=== PATIENT | female | born 1985 | race Caucasian/White ===

== ENCOUNTER 2016-11-04 15:57 | Emergency (ER) | payer OTHER ==
[2016-11-04 19:36] VITALS: BP 108/65
[2016-11-04] MEDS ORDERED: Ketorolac INJ* 60 MG/2 ML VIAL IM ONE (19:59)
--- NOTE | 2016-11-04 20:09 | UC ---
Throat Pain/Nasal Bharathi HPI - HPI Summary HPI Summary: ONE WEEK OF INCREASING SINUS PRESSURE LAST TWO DAYS SINUS PRESSURE HAS SET OFF MIGRAINE. TYLENOL & IBUPROFEN TAKE EDGE OF BUT SINUS PRESSURE IS WORSE. NO FEVER. DAILY SMOKER - History of Current Complaint Chief Complaint: UCHeadache Stated Complaint: HEADACHE Time Seen by Provider: 11/04/16 19:48 Hx Obtained From: Patient Hx Last Menstrual Period: 4-5 WKS Onset/Duration: Gradual Onset, Lasting Days, Still Present, Worse Since - YESTERDAY Cough: Nonproductive Associated Signs & Symptoms: Positive: Sinus Discomfort, Nasal Discharge - Allergies/Home Medications Allergies/Adverse Reactions: Allergies Allergy/AdvReac Type Severity Reaction Status Date / Time Fish Oil AdvReac Intermediate Diarrhea Verified 11/04/16 19:36 Home Medications: Home Medications Acetaminophen [Extra Strength Acetaminop] 1,000 mg PO DAILY PRN 11/04/16 [ History Confirmed 11/04/16] [id number]-Rakxvxew [Excedrin Migraine] 1 tab PO DAILY PRN 11/04/16 [ History Confirmed 11/04/16] Fenofibrate 54 mg PO DAILY 11/04/16 [History Confirmed 11/04/16] Ibuprofen [Ibuprofen 200 MG] 800 mg PO DAILY PRN 11/04/16 [History Confirmed ] Levothyroxine TAB* [Synthroid TAB*] 150 mcg PO DAILY 11/04/16 [History Confirmed 11/04/16] Loratadine [Loratadine Allergy Relief] 10 mg PO DAILY 11/04/16 [History Confirmed 11/04/16] PMH/Surg Hx/FS Hx/Imm Hx Previously Healthy: Yes Endocrine History Of: Reports: Diabetes - DIET CONTROLLED, Thyroid Disease Respiratory History Of: Reports: Asthma - Surgical History Surgical History: Yes Surgery Procedure, Year, and Place: Tubal and C section 04/19 - Family History Known Family History: Positive: Unknown, Respiratory Disease - BOTH PARENTS TOBACCO ABUSE, Other - no FMH osteoporosis - Social History Occupation: Employed Full-time Lives: With Family Alcohol Use: Rare Substance Use Type: None Smoking Status (MU): Current Every Day Smoker Type: Cigarettes Amount Used/How Often: 1/2 PPD Length of Time of Smoking/Using Tobacco: started ~ age 12 Have You Smoked in the Last Year: Yes Household Exposure Type: Cigarettes Cessation Counseling: Counseled 3+Min - 10 Min - Immunization History Most Recent Influenza Vaccination: Fall 2014 Review of Systems Constitutional: Negative Skin: Negative Eyes: Negative ENT: Ear Ache, Nasal Discharge Respiratory: Negative Cardiovascular: Negative Gastrointestinal: Negative Genitourinary: Negative Motor: Negative Neurovascular: Negative Musculoskeletal: Negative Neurological: Headache Psychological: Negative All Other Systems Reviewed And Are Negative: Yes Physical Exam Triage Information Reviewed: Yes Appearance: Well-Appearing, Well-Nourished, Pain Distress - MILD Vital Signs: Initial Vital Signs Temp 98 F 11/04/16 19:29 Pulse 88 11/04/16 19:29 Resp 16 11/04/16 19:29 BP 108/65 11/04/16 19:29 Pulse Ox 98 11/04/16 19:29 Vital Signs Reviewed: Yes Eye Exam: Normal ENT: Positive: Hearing grossly normal, Pharynx normal, TM bulging, TM dull Dental Exam: Normal Neck exam: Normal Neck: Positive: Supple, Nontender Respiratory Exam: Normal Respiratory: Positive: Chest non-tender, Lungs clear, Normal breath sounds, No respiratory distress, No accessory muscle use Cardiovascular Exam: Normal Cardiovascular: Positive: RRR, No Murmur Abdominal Exam: Normal Abdomen Description: Positive: Nontender, No Organomegaly Musculoskeletal Exam: Normal Musculoskeletal: Positive: Strength Intact, ROM Intact, Other: - NEGATIVE KERNIGS NEGATIVE BRUDZINSKIS Neurological Exam: Normal Neurological: Positive: Alert, Muscle Tone Normal, Other: - CN 2-12 INTACT Psychological Exam: Normal Skin Exam: Normal Throat Pain/Nasal Course/Dx - Differential Dx/Diagnosis Differential Diagnosis/HQI/PQRI: Influenza, Otitis Media, Pharyngitis, Sinusitis , URI Provider Diagnoses: MIGRAINE. SINUSITIS Discharge - Discharge Plan Condition: Stable Disposition: HOME Prescriptions: Amoxicillin/Clavulanate TAB* [Augmentin TAB 875*] 875 mg PO BID #20 tab Fluticasone NASAL SPRAY 50MCG* [Flonase NASAL SPRAY 50MCG*] 2 spray BOTH NARES DAILY #1 btl Patient Education Materials: How to Stop Smoking (ED), Sinusitis (ED), Migraine Headache (ED), Cigarette Smoking and Your Health (GEN) Referrals: Kalie Sheriff MD [Primary Care Provider] -
== END 2016-11-04 20:32 | disposition home or self-care (01) ==
LOC: UCCORT 15:57
DX: G43.909 Migraine, unspecified, not intractable, without status migrainosus (principal); J32.9 Chronic sinusitis, unspecified; E07.9 Disorder of thyroid, unspecified; F17.210 Nicotine dependence, cigarettes, uncomplicated
CPT/HCPCS: 96372; 99212; G0463; J1885

== ENCOUNTER 2017-04-27 18:50 | Emergency (ER) | payer OTHER ==
[2017-04-27 19:02] VITALS: BP 139/70
[2017-04-27] MEDS ORDERED: Amoxicillin PO (*) 500 MG CAP PO ONE (19:34)
--- NOTE | 2017-04-27 19:36 | UC ---
Throat Pain/Nasal Bharathi HPI - HPI Summary HPI Summary: 31 yo female with facial pressure and pain x 5 days no f/c malaise/low energy nasal congestion and post nasal drip - History of Current Complaint Chief Complaint: UCGeneralIllness Stated Complaint: FATIGUE/SINUS/CHILLS Time Seen by Provider: 04/27/17 19:25 Hx Obtained From: Patient Hx Last Menstrual Period: 04/27/17 Onset/Duration: Gradual Onset, Lasting Days Severity: Moderate Pain Intensity: 4 Pain Scale Used: 0-10 Numeric Cough: Nonproductive Associated Signs & Symptoms: Positive: Sinus Discomfort, Nasal Discharge - Allergies/Home Medications Allergies/Adverse Reactions: Allergies Allergy/AdvReac Type Severity Reaction Status Date / Time Fish Oil AdvReac Intermediate Diarrhea Verified 04/27/17 19:02 Home Medications: Home Medications Ibuprofen [Midol] 200 mg PO DAILY 04/27/17 [History Confirmed 04/27/17] PMH/Surg Hx/FS Hx/Imm Hx Previously Healthy: Yes Endocrine History: Hypothyroidism, Dyslipidemia Cardiovascular History: Hypertension Respiratory History: Asthma - Surgical History Surgical History: Yes Surgery Procedure, Year, and Place: Tubal and C section 04/19 - Family History Known Family History: Positive: Hypertension, Respiratory Disease - BOTH PARENTS TOBACCO ABUSE, Other - no FMH osteoporosis - Social History Alcohol Use: Rare Substance Use Type: None Smoking Status (MU): Current Every Day Smoker Type: Cigarettes Amount Used/How Often: 1/2 PPD Length of Time of Smoking/Using Tobacco: started ~ age 12 Have You Smoked in the Last Year: Yes Household Exposure Type: Cigarettes - Immunization History Most Recent Influenza Vaccination: Fall 2014 Review of Systems Constitutional: Negative Skin: Negative Eyes: Negative ENT: Nasal Discharge, Sinus Congestion, Sinus Pain/Tenderness Respiratory: Cough Cardiovascular: Negative Gastrointestinal: Negative Genitourinary: Negative Motor: Negative Neurovascular: Negative Musculoskeletal: Negative Neurological: Negative Psychological: Negative All Other Systems Reviewed And Are Negative: Yes Physical Exam Triage Information Reviewed: Yes Appearance: Well-Appearing, No Pain Distress Vital Signs: Initial Vital Signs Temp 98.6 F 04/27/17 18:59 Pulse 92 04/27/17 18:59 Resp 16 04/27/17 18:59 BP 139/70 04/27/17 18:59 Pulse Ox 100 04/27/17 18:59 Vital Signs Reviewed: Yes Eyes: Positive: Conjunctiva Clear ENT: Positive: Hearing grossly normal, Nasal congestion, Nasal drainage, TMs normal, Tonsillar swelling, Other: - bilat sinus tenderness. Negative: Tonsillar exudate, Trismus, Muffled/hoarse voice Dental: Negative: Gross Decay/Caries @ Neck: Positive: Supple, Nontender, No Lymphadenopathy Respiratory: Positive: Lungs clear, Normal breath sounds, No respiratory distress, No accessory muscle use Cardiovascular: Positive: RRR, No Murmur Abdomen Description: Positive: Nontender, No Organomegaly Musculoskeletal: Positive: ROM Intact, No Edema Neurological: Positive: Alert Psychological Exam: Normal Skin Exam: Normal Throat Pain/Nasal Course/Dx - Differential Dx/Diagnosis Provider Diagnoses: acute sinusitis Discharge - Discharge Plan Condition: Stable Disposition: HOME Prescriptions: Amoxicillin PO (*) [Amoxicillin 875 MG (*)] 875 mg PO BID #20 tab Patient Education Materials: Sinusitis (ED) Forms: *Work Release Referrals: Kalie Sheriff MD [Primary Care Provider] - If Needed Additional Instructions: warm facial compresses saline nasal spray and/or flonase
== END 2017-04-27 19:55 | disposition home or self-care (01) ==
LOC: UCCORT 18:50
DX: J01.90 Acute sinusitis, unspecified (principal); I10 Essential (primary) hypertension; J45.909 Unspecified asthma, uncomplicated; F17.210 Nicotine dependence, cigarettes, uncomplicated
CPT/HCPCS: 99212; A9270-GY; G0463

== ENCOUNTER 2017-05-12 09:27 | Emergency (ER) | payer OTHER ==
[2017-05-12 10:03] VITALS: BP 126/73
--- NOTE | 2017-05-12 10:58 | UC ---
Throat Pain/Nasal Bharathi HPI - HPI Summary HPI Summary: This is a 31 yo female with a 4d h/o ST, ear pain and fevers up to 102 F. She works as a daycare provider and recently finished a course of amoxicillin for a sinus infection. She still has some nasal congestion. She denies n/v/d. No recent rash. She is able to swallow, but solid foods are limited. - History of Current Complaint Chief Complaint: UCRespiratory Stated Complaint: SORE THROAT,FEVER Hx Last Menstrual Period: 04/27/17 Pain Intensity: 6 Pain Scale Used: 0-10 Numeric - Allergies/Home Medications Allergies/Adverse Reactions: Allergies Allergy/AdvReac Type Severity Reaction Status Date / Time Fish Oil AdvReac Intermediate Diarrhea Verified 05/12/17 10:03 PMH/Surg Hx/FS Hx/Imm Hx Previously Healthy: No - hypothyroidism - Surgical History Surgical History: Yes Surgery Procedure, Year, and Place: Tubal and C section 04/19 - Family History Known Family History: Positive: Unknown, Hypertension, Respiratory Disease - BOTH PARENTS TOBACCO ABUSE, Other - no FMH osteoporosis - Social History Alcohol Use: Rare Substance Use Type: None Smoking Status (MU): Current Every Day Smoker Type: Cigarettes Amount Used/How Often: 1/2 PPD Length of Time of Smoking/Using Tobacco: started ~ age 12 Have You Smoked in the Last Year: Yes Household Exposure Type: Cigarettes - Immunization History Most Recent Influenza Vaccination: Fall 2014 Review of Systems Constitutional: Fever, Fatigue Skin: Negative Eyes: Negative ENT: Sore Throat Respiratory: Negative Cardiovascular: Negative Gastrointestinal: Negative Genitourinary: Negative Motor: Negative Neurovascular: Negative Musculoskeletal: Negative Neurological: Negative Psychological: Negative All Other Systems Reviewed And Are Negative: Yes Physical Exam Triage Information Reviewed: Yes Appearance: Ill-Appearing - mildly Vital Signs: Initial Vital Signs Temp 96.9 F 05/12/17 10:00 Pulse 91 05/12/17 10:00 Resp 16 05/12/17 10:00 BP 126/73 05/12/17 10:00 Pulse Ox 99 05/12/17 10:00 Vital Signs Reviewed: Yes ENT: Positive: Pharyngeal erythema, TMs normal, Tonsillar swelling, Tonsillar exudate Neck: Positive: Supple, Tenderness @ - anterior cervical, Enlarged Nodes @ - anterior cervical Respiratory: Positive: Lungs clear, Normal breath sounds. Negative: Crackles, Rhonchi, Stridor, Wheezing Cardiovascular: Positive: RRR, No Murmur Abdomen Description: Positive: Nontender, Soft Skin Exam: Normal Diagnostics - Laboratory Diagnostic Studies Completed/Ordered: rapid strep - positive Throat Pain/Nasal Course/Dx - Course Course Of Treatment: This is 31 yo female who recently completed course of amoxicillin for a sinus infection who now presents with ST and fever with positive rapid strep. Due to recent amoxicillin, will treat with clindamycin. - Differential Dx/Diagnosis Differential Diagnosis/HQI/PQRI: Laryngitis, Pharyngitis, Sinusitis, Tonsillitis Provider Diagnoses: 1. Strep pharyngitis Discharge - Discharge Plan Condition: Stable Disposition: HOME Prescriptions: Clindamycin Cap(NF) [Clindamycin Cap 300 mg Cap(NF)] 300 mg PO TID #21 cap Patient Education Materials: Strep Throat (ED) Forms: *Work Release Referrals: Kalie Sheriff MD [Primary Care Provider] - If Needed Additional Instructions: Activity: As tolerated Instructions: 1. Please take antibiotics as directed 2. Cont nasal spray and antihistamine for congestion 3. Use tylenol and/or ibuprofen for fever/pain
== END 2017-05-12 10:38 | disposition home or self-care (01) ==
LOC: UCCORT 09:27
DX: J02.0 Streptococcal pharyngitis (principal); R09.81 Nasal congestion; E03.9 Hypothyroidism, unspecified; F17.210 Nicotine dependence, cigarettes, uncomplicated
CPT/HCPCS: 87651; 99212; G0463

== ENCOUNTER 2017-12-23 15:49 | Emergency (ER) | payer OTHER ==
[2017-12-23 15:55] VITALS: BP 127/74
--- OUTSIDE RECORDS SUMMARY | 2017-12-23 15:55 | XMS REPORT ---
:1985 External Reference #:[id number] Author Organization [facility] Address [address], [address] [place] [address] Phone [phone] Care Team Providers Name Role Phone Doris Damon M.D. Care Team Information Senior Network Architect Unavailable Doris Damon M.D. Primary Care Physician Unavailable Payers Type Date Identification Numbers Payment Provider Subscriber Commercial Policy Number: [id number] [facility] Susu Mahmood PayID: [id number] [address] [place] [address] Medicaid Policy Number: [id number] Medicaid Susu Mahmood Group Name: 1 1 [address] PayID: [id number] [place] [address] Problems Date Description Provider Status Onset: 05/28/2013 Abnormal cervical Papanicolaou TAYLOR Blount Active smear Onset: 02/18/2013 Hypothyroidism TAYLOR Blount Active Onset: 01/01/2012 Tobacco user Yancy Martinez, [employer] Active Onset: 09/18/2016 Mixed hyperlipidemia Doris Damon M.D. Active Onset: 01/23/2011 Contusion of foot Axel White MD Resolved Resolved: 09/08/2015 Onset: 02/18/2013 Pure hyperglyceridemia Nic Kirkpatrick RPAC Resolved Resolved: 09/08/2015 Onset: 04/28/2013 Disease of liver Nic Kirkpatrick RPAC Resolved Resolved: 09/08/2015 Onset: 07/16/2012 Type 2 diabetes mellitus Resolved Resolved: 11/09/2015 Onset: 09/08/2015 depression Doris Damon M.D. 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 - twice a Fenofibrate 07/26 Active Capsules 134mg 90cap 1 Tab PO Doris Damon Micronized s Q Day M.D. Nicotine 07/03 Active Patches 14mg/24HR 28uni 1 patch F17.210 Doris Damon, 24HR ts transderm M.D. al every daily Atorvastatin 07/03 Active Tablets 20mg 30tab 1 By Doris Damon, Calcium s Mouth M.D. Every Day Levothyroxine 07/03 Active Tablets 175mcg 30tab 1 By E03.9 Doris Damon, Sodium s Mouth M.D. Every Day Blood Glucose 09/18 Active Strips 100un test E11.9 Doris Damon, Test its sugars M.D. fasting Am e11.9 Lancets Ultra 09/18 Active Misc 50uni test E11.9 Doris Damon, Thin ts sugars M.D. three times a day dx.e11.9 Ventolin HFA 09/18 Active Aerosol 108(90Bas 8gm inhale Doris Damon e) 1-2 puffs M.D. mcg/Act by mouth every 4 to 6 hours as needed Metformin HCL 00/00 Active Tablets 500mg 60tab Take One Doris Damon, / s Tablet By M.D. Mouth Twice A Day Metformin HCL 08/05 Hx Tablets 500mg 60tab take one E11.9 Doris Damon s tablet by M.D. - mouth 08/19 twice a day Bupropion HCL 07/03 Hx Tablets ER 150mg 60tab 1 by F17.210 Doris Damon, ER (SR) /2016 12HR s mouth M.D. - twice a Fenofibrate 07/03 Hx Tablets 145mg 90tab 1 by Doris Damon, s mouth M.D. - every day 07/26 Mucinex 05/16 Hx Tablets ER 600mg 60tab one tab J01.90 Sloane /2016 12HR s by mouth JOHNNIE AmaroP - twice a Amoxicillin/Cl 05/16 Hx Suspension 250-62.5m 200ml 10 J02.0 [facility] /2016 Rec g/5ML millilite DIMA Amaro Potassium - rs by 05/26 twice a day x 10 days Fenofibrate 06/12 Hx Tablets 54mg 30tab Take 1 Doris Damon s Tab By Sis - Mouth 07/03 Daily Levothyroxine 06/12 Hx Tablets 150mcg 30tab take 1 E03.9 Doris Damon, s tablet by Sis - mouth 07/03 Naproxen 06/04 Hx Tablets 500mg 30tab 500 mg by M25.521 Doris Damon, s mouth M.D. - every 12 prn pain Baclofen 01/17 Hx Tablets 10mg 45tab 1 tab PO M54.2 Doris Damon s tid as M.D. - needed 09/18 Amoxicillin 01/17 Hx Tablets 500mg 20tab 1 tab by J01.90 Doris Damon, s mouth M.D. - twice a 06/04 day x days Sertraline HCL 12/06 Hx Tablets 25mg 1 by F33.0 Doris Damon, mouth M.D. - every day 06/04 Loratadine 12/06 Hx Tablets 10mg 30tab 1 by J30.9 Doris Damon, s mouth M.D. - every day 11/05 Atorvastatin 09/08 Hx Tablets 20mg 30tab 1 By Doris Damon Calcium s Mouth M.D. - Every Day 07/03 Levothyroxine 06/08 Hx Tablets 175mcg 30tab 1 By Doris Damon Sodium s Mouth M.D. - Every Day 06/12 Terconazole 11/04 Hx Cream 0.4% 1unit 1 Eva, s applicwilma Lemus MD - r every 09/08 night at /2014 bedtime Plus 09/07 Hx Tablets 27-1mg 30tab 1 by Sloane s mouth Bennyune, [employer] - every day 09/08 Flonase 06/15 Hx Suspension 50mcg/Act 1unit 1 spray Genie, s each bryon Amaya MD - daily 09/08 Ventolin HFA 06/03 Hx Aerosol 108mcg/Ac 1unit 1-2 puffs oDris Damon, t s every 4-6 M.D. - hours as 09/18 Vitamin B-6 02/06 Hx Tablets 250mg 30tab 1 po qd 924.20 Axel johnathon White MD - 09/08 Levothyroxine Hx Tablets 150mcg 1 by Mariah Mata / mouth MD Eva - every day 06/08 Lovaza Hx Capsules 1gm 120ca 2 tab po Unknown /0000 ps bid - 09/08 Motrin Hx Tablets 600mg 45tab po prn Unknown /0000 s pain - 09/08 Multivitamins 00 Hx Tablets 1 po qd Unknown /0000 - 09/08 Chantix Hx Tablets 1mg 1tabs continuat Unknown /0000 ion packs - 09/08 Sertraline HCL Hx Tablets 50mg 90tab 1 by F32.8 Doris Damon, / s mouth M.D. - every day 12/06 Benzonatate Hx Capsules 200mg 30cap one Doris Damon, /0000 s tablet by M.D. - mouth 11/09 every hours as needed cough Vitamin D3 Hx Tablets 2000Unit 1 by Doris Damon, Super Strength /0000 mouth M.D. - every day 09/18 Clindamycin 00/ Hx Capsules 300mg Unknown HCL /0000 - 07/03 Immunizations CPT Code Status Date Vaccine Lot # [id number] Given 07/03/2017 Influenza Virus Vaccine Quadrivalent Iiv4 [place] [id number] [id number] Given 09/03/2016 Influenza Virus Vaccine Split Virus Use For [id number] Individual 3Yr Older [id number] Given 09/08/2015 Influenza Vaccine (Fluzone) Age 3 And Older [id number] Given 01/18/2014 Tdap injection 80688 Given 07/16/2013 flu vaccination 27596 Given 10/02/2012 flu vaccination [id number] Given 07/17/2011 flu vaccination Vital Signs Date Vital Result Comment 11/26/2017 BP Systolic Sitting Right Arm 120 mmHg BP Diastolic Sitting Right Arm 88 mmHg Body Temperature 97.4 F Heart Rate 90 /min Respiratory Rate 16 /min Height 63 inches 5'3" Weight 188.00 lb BMI (Body Mass Index) 33.3 kg/m2 BSA (Body Surface Area) 1.88 m2 [place] body weight in kilograms 52 O2 % BldC Oximetry 95 % 11/05/2017 BP Systolic Sitting Left Arm 110 mmHg BP Diastolic Sitting Left Arm 70 mmHg Height 63 inches 5'3" Weight 186.38 lb BMI (Body Mass Index) 33.0 kg/m2 BSA (Body Surface Area) 1.88 m2 [place] body weight in kilograms 52 08/05/2017 BP Systolic Sitting Right Arm 102 mmHg BP Diastolic Sitting Right Arm 78 mmHg Heart Rate 64 /min Height 63 inches 5'3" Weight 192.12 lb BMI (Body Mass Index) 34.0 kg/m2 BSA (Body Surface Area) 1.90 m2 [place] body weight in kilograms 52 07/03/2017 BP Systolic Sitting Right Arm 120 mmHg BP Diastolic Sitting Right Arm 76 mmHg Height 63 inches 5'3" Weight 194.00 lb BMI (Body Mass Index) 34.4 kg/m2 BSA (Body Surface Area) 1.91 m2 [place] body weight in kilograms 52 Last Menstrual Period [id number] 05/16/2017 BP Systolic 116 mmHg BP Diastolic 84 mmHg Body Temperature 98.3 F Heart Rate 92 /min Height 63 inches 5'3" Weight 191.00 lb BMI (Body Mass Index) 33.8 kg/m2 BSA (Body Surface Area) 1.90 m2 [place] body weight in kilograms 52 O2 % BldC Oximetry 97 % 09/18/2016 BP Systolic 132 mmHg BP Diastolic 80 mmHg Height 63 inches 5'3" Weight 197.12 lb BMI (Body Mass Index) 34.9 kg/m2 BSA (Body Surface Area) 1.92 m2 [place] body weight in kilograms 52 06/11/2016 BP Systolic Sitting Left Arm 138 mmHg BP Diastolic Sitting Left Arm 86 mmHg Height 63 inches 5'3" Weight 198.12 lb BMI (Body Mass Index) 35.1 kg/m2 BSA (Body Surface Area) 1.93 m2 [place] body weight in kilograms 52 06/04/2016 BP Systolic Sitting Left Arm 114 mmHg BP Diastolic Sitting Left Arm 78 mmHg Body Temperature 99.1 F Heart Rate 84 /min Respiratory Rate 18 /min Weight 199.12 lb Last Menstrual Period [id number] 01/18/2016 BP Systolic Sitting Left Arm 118 mmHg BP Diastolic Sitting Left Arm 74 mmHg Body Temperature 98.9 F Heart Rate 60 /min Respiratory Rate 19 /min Height 63 inches 5'3" Weight 189.00 lb BMI (Body Mass Index) 33.5 kg/m2 BSA (Body Surface Area) 1.89 m2 12/07/2015 BP Systolic 110 mmHg BP Diastolic 70 mmHg Heart Rate 88 /min Respiratory Rate 19 /min Weight 182.00 lb 09/08/2015 BP Systolic 112 mmHg BP Diastolic 72 mmHg Height 63 inches 5'3" Weight 174.00 lb BMI (Body Mass Index) 30.8 kg/m2 BSA (Body Surface Area) 1.82 m2 Last Menstrual Period [id number] 10/17/2014 BP Systolic 118 mmHg BP Diastolic 74 mmHg Height 63 inches 5'3" Weight 187.00 lb 10/17/2014 Body Temperature 98.9 F 09/07/2014 BP Systolic 120 mmHg BP Diastolic 80 mmHg Heart Rate 88 /min Height 63 inches 5'3" Weight 182.00 lb 09/06/2014 BP Systolic 108 mmHg BP Diastolic 76 mmHg Weight 183.00 lb 06/03/2014 BP Systolic 118 mmHg BP Diastolic 72 mmHg Body Temperature 99.0 F Weight 180.00 lb 01/18/2014 BP Systolic 114 mmHg BP Diastolic 72 mmHg Body Temperature 98.8 F Height 63 inches 5'3" Weight 191.00 lb 07/16/2013 BP Systolic 100 mmHg BP Diastolic 78 mmHg Height 63 inches 5'3" Weight 181.00 lb 05/28/2013 BP Systolic 118 mmHg BP Diastolic 72 mmHg Body Temperature 98.6 F Height 63 inches 5'3" Weight 179.00 lb 05/10/2013 BP Systolic 118 mmHg BP Diastolic 80 mmHg Body Temperature 98.4 F Height 63 inches 5'3" Weight 181.00 lb 03/15/2013 Height 63 inches 5'3" Weight 178.00 lb 03/15/2013 BP Systolic 120 mmHg BP Diastolic 78 mmHg 02/18/2013 BP Systolic 112 mmHg BP Diastolic 70 mmHg Height 63 inches 5'3" Weight 176.00 lb 10/16/2012 BP Systolic 118 mmHg BP Diastolic 66 mmHg Height 63 inches 5'3" Weight 180.00 lb 10/02/2012 BP Systolic 116 mmHg BP Diastolic 74 mmHg Body Temperature 99.0 F Height 63 inches 5'3" Weight 181.00 lb 07/30/2012 BP Systolic 108 mmHg BP Diastolic 78 mmHg Height 63 inches 5'3" Weight 182.00 lb 07/16/2012 BP Systolic 100 mmHg BP Diastolic 70 mmHg Body Temperature 98.9 F Height 63 inches 5'3" Weight 184.00 lb 02/06/2012 BP Systolic 118 mmHg BP Diastolic 72 mmHg Heart Rate 80 /min Height 63 inches 5'3" Weight 191.00 lb 01/01/2012 BP Systolic 124 mmHg BP Diastolic 76 mmHg Body Temperature 98.8 F Height 63 inches 5'3" Weight 188.00 lb 09/02/2011 BP Systolic 108 mmHg BP Diastolic 70 mmHg Body Temperature 98.8 F Height 63 inches 5'3" Weight 188.00 lb 07/17/2011 BP Systolic 118 mmHg BP Diastolic 72 mmHg Heart Rate 80 /min Respiratory Rate 18 /min Height 63 inches 5'3" Weight 186.00 lb 01/23/2011 Height 64 inches 5'4" Weight 185.00 lb BMI (Body Mass Index) 31.8 kg/m2 Results Test Date Test Result H/L Range Note Glycohemoglobin A1c 11/11/2017 Glycohemoglobin (A1c) 6.6 % High 4.2-6.3 1 , 2 eAG 143 mg/dL 1 LDL Cholesterol Profile 11/11/2017 Cholesterol 119 mg/dL <200 1, 3 Triglycerides 256 mg/dL High <150 1, 4 HDL Cholesterol 27 mg/dL Low >40 1, 5 LDL-Cholesterol 41 mg/dL < 100 1, 6 Reflex add FT3? Y 1 Reflex add FT4? Y 1 Comprehensive Metabolic Panel 11/11/2017 Glucose 112 mg/dL High 74-106 1 BUN 14 mg/dL 7-18 1 Creatinine 0.7 mg/dL 0.6-1.3 1 Glom Filtration Rate, Estimate >60 mL/min >60 1 If >60 mL/min >60 1, 7 BUN/Creat 20.0 ratio 1 Sodium 139 mmol/L 136-145 1 Potassium 4.2 mmol/L 3.5-5.1 1 Chloride 107 mmol/L 98-107 1 Carbon Dioxide 27 mmol/L 21-32 1 Anion Gap 5 mEq/L Low 8-16 1 Calcium 8.7 mg/dL 8.5-10.1 1 Total Protein 7.1 g/dL 6.4-8.2 1 Albumin 4.0 g/dL 3.4-5.0 1 Globulin 3.1 g/dL 1.9-4.3 1 Alb/Glob 1.3 ratio 1 Bilirubin,Total 0.3 mg/dL 0.2-1.0 1 Sgot/Ast 33 U/L 15-37 1 SGPT/Alt 71 U/L 12-78 1 Alkaline Phosphatase 62 U/L 45-117 1 Reflex add FT3? Y 1 Reflex add FT4? Y 1 TSH Reflex FT4 And/Or FT3 11/11/2017 Thyroid Stim Hormone 0.35 uIU/mL 0.30-4.20 1 Reflex add FT3? Y 1 Reflex add FT4? Y 1 TSH Reflex FT4 And/Or FT3 09/15/2017 Thyroid Stim Hormone 0.74 uIU/mL 0.30-4.20 8 Reflex add FT3? Y 8 Reflex add FT4? Y 8 Glycohemoglobin A1c 07/03/2017 Glycohemoglobin (A1c) 6.5 % High 4.2-6.3 9 , 10 eAG 140 mg/dL 9 Microalb/Creat Ratio,Random 07/03/2017 Microalbumin,Urine 87.4 mg/L < 20.0 9 Microalbumin/Creatinine Ratio 38.5 ug/mgCrt < 30.0 9 Urine Creatinine Conc 227 mg/dL 9 TSH Reflex FT4 And/Or 07/03/2017 Thyroid Stim Hormone 7.92 uIU/mL High 0.30-4.20 9 FT3 Reflex add FT3? Y 9 Reflex add FT4? Y 9 LDL Cholesterol Profile 07/03/2017 Cholesterol 275 mg/dL High <200 9, 11 Triglycerides 1344 mg/dL High <150 9, 12 HDL Cholesterol 26 mg/dL Low >40 9, 13 LDL-Cholesterol TNP mg/dL < 100 9, 14 Reflex add FT3? Y 9 Reflex add FT4? Y 9 Free T3 07/03/2017 Free T3 2.53 pg/mL 2.18-3.98 9 Reflex add FT3? Y 9 Reflex add FT4? Y 9 Free T4 07/03/2017 Free T4 1.22 ng/dL 0.76-1.46 9 Reflex add FT3? Y 9 Reflex add FT4? Y 9 LDL Cholesterol Profile 09/18/2016 Cholesterol 161 mg/dL <200 15, 16 Triglycerides 439 mg/dL High <150 15, 17 HDL Cholesterol 25 mg/dL Low >40 15, 18 LDL-Cholesterol TNP mg/dL < 100 15, 19 Laboratory test 09/18/2016 Glycohemoglobin A1c <pending> 15 finding Free T4 06/11/2016 Free T4 1.56 ng/dL High 0.76-1.46 20 @[facility] Pat Id: [id number] 20 @[facility] Req #: [id number] 20 Is Patient Fasting? Unknown 20 Thyroid Stim Hormone 06/11/2016 Thyroid Stim Hormone 2.50 uIU/mL 0.30- 4.20 20 @[facility] Pat Id: [id number] 20 @[facility] Req #: [id number] 20 Is Patient Fasting? Unknown 20 LDL Cholesterol Profile 06/11/2016 Cholesterol 167 mg/dL <200 20, 21 Triglycerides 735 mg/dL High <150 20, 22 HDL Cholesterol 26 mg/dL Low >40 20, 23 LDL-Cholesterol TNP mg/dL < 100 20, 24 @[facility] Pat Id: [id number] 20 @[facility] Req #: [id number] 20 Is Patient Fasting? Unknown 20 Laboratory test 09/08/2015 TSH Reflex FT4 and/or 0.49 uIU/mL 0.36-3.74 25, 26 finding FT3 LDL Cholesterol 09/08/2015 Cholesterol 195 mg/dL <200 27 Profile Triglycerides 319 mg/dL High <150 28 HDL Cholesterol 28 mg/dL Low >40 29 LDL-Cholesterol 103 mg/dL < 100 30 Glycohemoglobin A1c 09/08/2015 Glycohemoglobin (A1c) 5.9 % 4.2-6.3 31 eAG 123 mg/dL Microalb/Creat Ratio,Random 09/08/2015 Microalbumin,Urine < 6.0 mg/L & lt; 20.0 Microalbumin/Creatinine Ratio 5.7 ug/mgCrt < 30.0 Urine Creatinine Conc 105 mg/dL Laboratory test 09/08/2015 Hepatitis B Surface Nonreactive 32, 33 finding Antigen Nonreactive Hepatitis B Surface 09/08/2015 HBSAb Interpretation Nonreactive Antibody Nonreactive Hepatitis B Surface Antibody < 3.1 mIU/mL <3.1 34 Type And Screen 06/16/2015 Patient Blood Type A NEG Antibody Screen POSITIVE High Negative Laboratory test finding 06/16/2015 Antibody Identification RHOGAM D 35 Urine Screen 06/16/2015 Urine Color YELLOW Yellow Urine Clarity SL CLOUDY Clear Urine Glucose - Dipstick NEGATIVE mg/dL Negative Urine Bilirubin - Dipstick NEGATIVE Negative Urine Ketone NEGATIVE mg/dL Negative Urine Specific [place] 1.020 1.010-1.030 Urine Blood NEGATIVE Negative Urine PH 6.0 Low 6.5-7.5 Urine Protein - Dipstick TRACE mg/dL Negative Urine Urobilinogen - Dipstick 0.2 E.U./dL 0.2-1.0 Urine Nitrite - Dipstick NEGATIVE Negative Urine Leuk Esterase NEGATIVE Negative Laboratory test finding 06/09/2015 Free T4 1.45 ng/dL 0.76-1.46 CBS W/Automated Diff 06/09/2015 White Blood Count 12.6 K/uL High 3.1-10.7 Red Blood Count 4.97 M/uL 3.90-5.40 Hemoglobin 14.4 gm/dL 11.6-15.8 Hematocrit 43.4 % 36.0-46.1 Mean Cell Volume 87.3 fl 80.9-99.0 Mean Corpuscular HGB 29.0 pg 25.9-32.7 Mean Corpuscular HGB Conc 33.2 g/dL 30.8-34.3 Platelet Count 262 K/uL 155-360 Red Cell Distri Width SD 43.5 fl 3-47 Red Cell Distri Width %CV 13.9 % 11.7-14.4 Mean Platelet Volume 10.6 fL 8.9-12.4 Neut% 64.3 % 40.4-72.8 Lymph % 26.1 % 17.0-46.1 [place] % 7.3 % 4.3-13.2 Eo% 2.1 % 0.0-6.6 Bas% 0.2 % 0.0-1.1 Neut# 8.08 K/uL High 1.0-7.0 Lymph # 3.28 K/uL 1.8-7.0 [place] # 0.92 K/uL High 0.3-0.9 Eos # 0.27 K/uL 0.0-0.5 Baso # 0.03 K/uL 0.0-0.1 Basic Metabolic Panel 06/09/2015 Glucose 106 mg/dL 74-106 BUN 10 mg/dL 7-18 Creatinine 0.6 mg/dL 0.6-1.3 Glom Filtration Rate, Estimate >60 mL/min >60 If >60 mL/min >60 36 BUN/Creat 16.6 ratio Sodium 138 mmol/L 136-145 Potassium 4.3 mmol/L 3.5-5.1 Chloride 107 mmol/L 98-107 Carbon Dioxide 24 mmol/L 21-32 Anion Gap 7 mEq/L Low 8-16 Calcium 8.6 mg/dL 8.5-10.1 Laboratory test finding 06/09/2015 TSH Reflex FT4 and/or 0.11 uIU/mL Low 0.36-3.74 37 FT3 Glycohemoglobin A1c 06/09/2015 Glycohemoglobin (A1c) 6.2 % 4.2-6.3 38 eAG 131 mg/dL LDL Cholesterol Profile 06/09/2015 Cholesterol 200 mg/dL < 200 39 Triglycerides 278 mg/dL < 150 40 HDL Cholesterol 30 mg/dL > 40 41 LDL-Cholesterol 114 mg/dL < 100 42 Liver Function Tests 06/09/2015 Total Protein 7.1 g/dL 6.4-8.2 Albumin 3.4 g/dL 3.4-5.0 Globulin 3.7 g/dL 1.9-4.3 Alb/Glob 0.9 ratio Bilirubin,Total 0.3 mg/dL 0.2-1.0 Bilirubin,Direct < 0.1 mg/dL 0.0-0.2 Bilirubin,Indirect 0.2 mg/dL 0.0-0.9 Sgot/Ast 12 U/L Low 15-37 43 SGPT/Alt 25 U/L 12-78 Alkaline Phosphatase 83 U/L 45-117 CBC 04/23/2015 White Blood Count 19.3 K/uL High 3.1-10.7 Red Blood Count 3.78 M/uL Low 3.90-5.40 Hemoglobin 11.7 gm/dL 11.6-15.8 Hematocrit 34.6 % Low 36.0-46.1 Mean Cell Volume 91.5 fl 80.9-99.0 Mean Corpuscular HGB 31.0 pg 25.9-32.7 Mean Corpuscular HGB Conc 33.8 g/dL 30.8-34.3 Platelet Count 206 K/uL 155-360 Red Cell Distri Width %CV 14.0 % 11.7-14.4 Mean Platelet Volume 9.9 fL 8.9-12.4 CBC 04/22/2015 White Blood Count 15.8 K/uL High 3.1-10.7 Red Blood Count 3.78 M/uL Low 3.90-5.40 Hemoglobin 11.4 gm/dL Low 11.6-15.8 Hematocrit 33.8 % Low 36.0-46.1 Mean Cell Volume 89.4 fl 80.9-99.0 Mean Corpuscular HGB 30.2 pg 25.9-32.7 Mean Corpuscular HGB Conc 33.7 g/dL 30.8-34.3 Platelet Count 174 K/uL 155-360 Red Cell Distri Width %CV 13.8 % 11.7-14.4 Mean Platelet Volume 10.1 fL 8.9-12.4 Laboratory test finding 04/21/2015 Screen NEGATIVE 44 Laboratory test finding 04/21/2015 Appendix Inflammation See Note 45 CBC 04/20/2015 White Blood Count 14.3 K/uL High 3.1-10.7 Red Blood Count 4.21 M/uL 3.90-5.40 Hemoglobin 12.7 gm/dL 11.6-15.8 Hematocrit 37.1 % 36.0-46.1 Mean Cell Volume 88.1 fl 80.9-99.0 Mean Corpuscular HGB 30.2 pg 25.9-32.7 Mean Corpuscular HGB Conc 34.2 g/dL 30.8-34.3 Platelet Count 212 K/uL 155-360 Red Cell Distri Width %CV 13.9 % 11.7-14.4 Mean Platelet Volume 10.3 fL 8.9-12.4 Laboratory test finding 04/20/2015 Rapid Plasma Reagin NONREACTIVE NONREACTIVE 46 Type And Screen 04/20/2015 Patient Blood Type A NEG Antibody Screen Negative Negative Laboratory test finding 09/07/2014 Abo/RH Type A Neg Antibody Detection See Note 47 Antibody Screen Negative Negative HCG, Quant 23946.0 mIU/mL 48 Hepatitis B Surface Antigen Nonreactive Nonreactive 49 Lead,Blood (Adult) 2 g/dL 0-19 50 Rapid Plasma Reagin Nonreactive Nonreactive 51 Varicella-Zoster Virus IgG Ab 543 Immune>165ind 52 Basic Metabolic Panel 09/07/2014 Anion Gap 12 mEq/L 8-16 BUN 9 mg/dL 7-18 BUN/Creat 12.8 ratio Calcium 9.1 mg/dL 8.5-10.1 Carbon Dioxide 25 mmol/L 21-32 Chloride 103 mmol/L 98-107 Creatinine 0.7 mg/dL 0.6-1.3 Glom Filtration Rate, Estimate >60 mL/min >60 Glucose 103 mg/dL 74-106 If >60 mL/min >60 53 Potassium 3.5 mmol/L 3.5-5.1 Sodium 136 mmol/L 136-145 CBC 09/07/2014 Hematocrit 41.3 % 36.0-46.1 Hemoglobin 14.1 gm/dL 11.6-15.8 Mean Cell Volume 88.2 fl 80.9-99.0 Mean Corpuscular HGB 30.1 pg 25.9-32.7 Mean Corpuscular HGB Conc 34.1 g/dL 30.8-34.3 Mean Platelet Volume 10.1 fL 8.9-12.4 Platelet Count 297 K/uL 155-360 Red Blood Count 4.68 M/uL 3.90-5.40 Red Cell Distri Width %CV 13.6 % 11.7-14.4 White Blood Count 12.6 K/uL High 3.1-10.7 Glycohemoglobin A1c 09/07/2014 Glycohemoglobin (A1c) 5.6 % 4.2-6.3 54 eAG 114 mg/dL Rubella IgG Antibody 09/07/2014 Rubella IgG Antibody Reactive Reactive Rubella IgG Iu/ml 23.4 IU/mL >=10.0 55 Throat-Beta Strept 10/31/2013 Throat Beta Strep Culture (See Note) 56 Laboratory test finding 07/16/2013 Throat Beta Strep Culture (See Note) 57 Urine Culture And 05/28/2013 Urine Culture (See Note) 58 Sensitivities Laboratory test finding 05/28/2013 Pap plus HPV HPV HR+ LR+ 59 GC / Chlamydia 05/28/2013 Chlamydia Negative GC Negative 60 Urine Culture And 03/15/2013 Urine Culture (See Note) 61 Sensitivities Culture Urine 02/18/2013 Urine Culture (See Note) 62 Laboratory test finding 02/06/2012 Cytology Pap See Note 63 Laboratory test finding 02/06/2012 Vad Final Nonreactive Nonreactive 64 GC / Chlamydia 02/06/2012 Chlamydia Negative GC Negative 65 Laboratory test 01/01/2012 Throat-Beta Strep <See 66 finding Culture Note> 1 E11.9 E78.2 E03.9 2 Elevated levels of HbA1c suggest the need for more aggressive treatment of glycemia. The [place] [employer] recommends that a primary goal of therapy should be a HbA1c of <7% and that physicians should re-evaluate the treatment regimen in patients with HbA1c values consistently >8%. 3 Reference Guidelines*: Desirable: ........... < 200 mg/dL Borderline High: ..... 200-239 mg/dL High: ................ >=240 mg/dL * The National Cholesterol Education Program (NCEP) 4 Reference Guidelines*: Normal: ............. < 150 mg/dL Borderline High: .... 150-199 mg/dL High: ............... 200-499 mg/dL Very High: .......... > 500 mg/dL * Source: National Cholesterol Education Program (NCEP) 5 Reference Guidelines*: Low HDL: ..... < 40 mg/dL Normal: ..... 40-60 mg/dL Desirable: ... > 60 mg/dL *The National Cholesterol Education Program(NCEP) 6 Reference Guidelines*: Optimal:........... <100 mg/dL Near Optimal....... 100-129 mg/dL Borderline High.... 130-159 mg/dL High............... 160-189 mg/dL Very High.......... >=190 mg/dL * Source: National Cholesterol Education Program (NCEP) 7 Note: Persistent reduction for 3 months or more in an eGFR <60 mL/min/1.73 m2 defines CKD. Patients with eGFR values >/=60 mL/min/1.73 m2 may also have CKD if evidence of persistent proteinuria is present. The original MDRD equation for estimated GFR is not valid for patients less than 18 years of age. Additional information may be found at www.kdoqi.org. 8 E03.9 9 E11.9 E03.9 E78.2 10 Elevated levels of HbA1c suggest the need for more aggressive treatment of glycemia. The [place] [employer] recommends that a primary goal of therapy should be a HbA1c of <7% and that physicians should re-evaluate the treatment regimen in patients with HbA1c values consistently >8%. 11 Reference Guidelines*: Desirable: ........... < 200 mg/dL Borderline High: ..... 200-239 mg/dL High: ................ >=240 mg/dL * The National Cholesterol Education Program (NCEP) 12 Reference Guidelines*: Normal: ............. < 150 mg/dL Borderline High: .... 150-199 mg/dL High: ............... 200-499 mg/dL Very High: .......... > 500 mg/dL * Source: National Cholesterol Education Program (NCEP) 13 Reference Guidelines*: Low HDL: ..... < 40 mg/dL Normal: ..... 40-60 mg/dL Desirable: ... > 60 mg/dL *The National Cholesterol Education Program(NCEP) 14 (LDL CANNOT BE CALCULATED FOR TRIGS >400 mg/dL) 15 E78.2 E11.9 16 Reference Guidelines*: Desirable: ........... < 200 mg/dL Borderline High: ..... 200-239 mg/dL High: ................ >=240 mg/dL * The National Cholesterol Education Program (NCEP) 17 Reference Guidelines*: Normal: ............. < 150 mg/dL Borderline High: .... 150-199 mg/dL High: ............... 200-499 mg/dL Very High: .......... > 500 mg/dL * Source: National Cholesterol Education Program (NCEP) 18 Result confirmed by repeat analysis. Reference Guidelines*: Low HDL: ..... < 40 mg/dL Normal: ..... 40-60 mg/dL Desirable: ... > 60 mg/dL *The National Cholesterol Education Program(NCEP) 19 (LDL CANNOT BE CALCULATED FOR TRIGS >400 mg/dL) 20 E78.5 E03.9 21 Reference Guidelines*: Desirable: ........... < 200 mg/dL Borderline High: ..... 200-239 mg/dL High: ................ >=240 mg/dL * The National Cholesterol Education Program (NCEP) 22 Reference Guidelines*: Normal: ............. < 150 mg/dL Borderline High: .... 150-199 mg/dL High: ............... 200-499 mg/dL Very High: .......... > 500 mg/dL * Source: National Cholesterol Education Program (NCEP) 23 Reference Guidelines*: Low HDL: ..... < 40 mg/dL Normal: ..... 40-60 mg/dL Desirable: ... > 60 mg/dL *The National Cholesterol Education Program(NCEP) 24 (LDL CANNOT BE CALCULATED FOR TRIGS >400 mg/dL) 25 QUERY: Reflex add FT3? Y QUERY: Reflex add FT4? Y 26 09/08/15 (FriSep 08) 03:09 PM DORISBENJAMIN DOWLINGN continue levothyroxine 175mcg 27 Reference Guidelines*: Desirable: ........... < 200 mg/dL Borderline High: ..... 200-239 mg/dL High: ................ >=240 mg/dL * The National Cholesterol Education Program (NCEP) 28 Reference Guidelines*: Normal: ............. < 150 mg/dL Borderline High: .... 150-199 mg/dL High: ............... 200-499 mg/dL Very High: .......... > 500 mg/dL * Source: National Cholesterol Education Program (NCEP) 29 Reference Guidelines*: Low HDL: ..... < 40 mg/dL Normal: ..... 40-60 mg/dL Desirable: ... > 60 mg/dL *The National Cholesterol Education Program(NCEP) 30 Reference Guidelines*: Optimal:........... <100 mg/dL Near Optimal....... 100-129 mg/dL Borderline High.... 130-159 mg/dL High............... 160-189 mg/dL Very High.......... >=190 mg/dL * Source: National Cholesterol Education Program (NCEP) 31 Elevated levels of HbA1c suggest the need for more aggressive treatment of glycemia. The [place] [employer] recommends that a primary goal of therapy should be a HbA1c of <7% and that physicians should re-evaluate the treatment regimen in patients with HbA1c values consistently >8%. 32 HBsAg not detected; does not exclude the possibility of exposure to or early acute infections with HBV. 33 09/08/15 (FriSep 08) 03:09 PM DORIS DAMON will need Hep B shots series 34 Values >10 mIU/ML considered IMMUNE 35 Blood Type A NEG 36 Note: Persistent reduction for 3 months or more in an eGFR <60 mL/min/1.73 m2 defines CKD. Patients with eGFR values >/=60 mL/min/1.73 m2 may also have CKD if evidence of persistent proteinuria is present. The original MDRD equation for estimated GFR is not valid for patients less than 18 years of age. Additional information may be found at www.kdoqi.org. 37 A low TSH should not be the sole basis for diagnosing primary hyperthyroidism, or primary hypopituitary function. Additional tests are suggested for confirmation. 38 Elevated levels of HbA1c suggest the need for more aggressive treatment of glycemia. The [place] [employer] recommends that a primary goal of therapy should be a HbA1c of <7% and that physicians should re-evaluate the treatment regimen in patients with HbA1c values consistently >8%. 39 Reference Guidelines*: Desirable: ........... < 200 mg/dL Borderline High: ..... 200-239 mg/dL High: ................ >=240 mg/dL * The National Cholesterol Education Program (NCEP) 40 Reference Guidelines*: Normal: ............. < 150 mg/dL Borderline High: .... 150-199 mg/dL High: ............... 200-499 mg/dL Very High: .......... > 500 mg/dL * Source: National Cholesterol Education Program (NCEP) 41 Reference Guidelines*: Low HDL: ..... < 40 mg/dL Normal: ..... 40-60 mg/dL Desirable: ... > 60 mg/dL *The National Cholesterol Education Program(NCEP) 42 Reference Guidelines*: Optimal:........... <100 mg/dL Near Optimal....... 100-129 mg/dL Borderline High.... 130-159 mg/dL High............... 160-189 mg/dL Very High.......... >=190 mg/dL * Source: National Cholesterol Education Program (NCEP) 43 Values below the stated reference ranges of AST and ALT can be seen in normal populations. Clinical correlation is suggested. 44 Blood Type A NEG 45 OPERATION/PROCEDURE , bilateral tubal occlusion, appendectomy DIAGNOSIS: "INCIDENTAL APPENDECTOMY": FIBROUS OBLITERATION OF TIP. /[facility] 0956 GROSS The specimen is received in formalin in a container labeled, "APPENDIX". The specimen consists of a 5.0 x 1.0 x 1.0 cm. pink-colbert, grossly identifiable vermiform appendix with attached yellow mesoappendix. The serosa is pink-colbert with no areas of hemorrhage, necrosis or inflammation identified. The entire appendix is serially sectioned and submitted entirely in two blocks. DEMARIO/cl PRE OPERATIVE DIAGNOSIS Fecalith appendix, full term with bilateral Filshie clips REVIEW CODE CODE: I Signed Electronically signed MARGAUX SUTTON MD 1054 46 PENDING; TEST PERFORMED ON MONDAYS AND THURSDAYS 47 No reportable results 48 Approximate Gestational Age and Total BHCG Range: 0.2 - 1 Week........................5-50 mIU/mL 1 - 2 Weeks.....................50- 500 mIU/mL 2 - 3 Weeks..................100-5,000 mIU/mL 3 - 4 Weeks.................500-10,000 mIU/mL 4 - 5 Weeks...............1,000-50, 000 mIU/mL 5 - 6 Weeks.............10,000-100,000 mIU/mL 6 - 8 Weeks.............15,000-200,000 mIU/mL 2 - 3 Months............10,000-100, 000 mIU/mL 49 HBsAg not detected; does not exclude the possibility of exposure to or early acute infections with HBV. 50 Environmental Exposure: WHO Recommendation <20 Occupational Exposure: OSHA Lead Std 40 BILLY 30 Detection Limit=1 51 PENDING; TEST PERFORMED ON MONDAYS AND THURSDAYS 52 Negative <135 Equivocal 135 - 165 Positive >165 A positive result generally indicates exposure to the pathogen or administration of specific immunoglobulins, but it is not indication of active infection or stage of disease. Performed at: RN - [facility] [address] [id number] Sewing Inspector: Aisha Millan MD, Phone: [phone] 53 Note: Persistent reduction for 3 months or more in an eGFR <60 mL/min/ 1.73 m2 defines CKD. Patients with eGFR values >/=60 mL/min/1.73 m2 may also have CKD if evidence of persistent proteinuria is present. The original MDRD equation for estimated GFR is not valid for patients less than 18 years of age. Additional information may be found at www.kdoqi.org. 54 Elevated levels of HbA1c suggest the need for more aggressive treatment of glycemia. The [place] [employer] recommends that a primary goal of therapy should be a HbA1c of <7% and that physicians should re-evaluate the treatment regimen in patients with HbA1c values consistently >8%. 55 Values >=10.0 IU/mL are positive for IgG antibodies to rubella virus and are considered IMMUNE. 56 RUN DATE: 11/01/13 [facility] LAB LIVE PAGE 1 RUN TIME: [address] [place] [address] Specimen Inquiry ----- Name: SUSU MAHMOOD : [address]: Lydia Benitez MD Acct: [id number] Unit: [id number] AGE: 28 Location: [facility] Re10/31/13 SEX: F Status: DEP ER ----- SPEC: [id number] HERMELINDA: 10/31/13-[address] [facility] [address]: Lydia Benitez MD REQ: [id number] RECD: 10/31/13-2 STATUS: COMP [facility] DR: Monique Prescott MD [facility] _ SOURCE: THROAT SPDESC: ORDERED: Throat Beta Str COMMENTS: Verbal to [id number] by [id number] at 0829 on 11/01/13. Results read back accurately. ----- Procedure Result Verified Site ----- Throat Beta Strep Culture Final 11/01/13-828 ML Organism 1 STREP GRP A BY BACITRACIN DISC ----- END OF REPORT * ML=Testing performed at Main Lab DEPARTMENT OF PATHOLOGY, [facility] [employer] [place] [address] Eugenio Turcios M.D. Director [facility] Permit # [id number] RUN DATE: 07/18/13 [facility] LAB LIVE PAGE 1 RUN TIME: 931 [facility] [employer] [place], [place] [address] Specimen Inquiry ----- Name: SUSU MAHMOOD : [address]: Dianne Vo NP Acct: [id number] Unit: [id number] AGE: 27 Location: [facility] Re07/16/13 SEX: F Status: REG REF ----- SPEC: [id number] HERMELINDA: 07/16/13-[address]: Dianne Vo NP REQ: [id number] RECD: 07/16/13 STATUS: COMP _ SOURCE: THROAT SPDESC: ORDERED: Throat Beta Str QUERIES: Medent Number [id number] ----- Procedure Result Verified Site ----- Throat Beta Strep Culture Final 07/18/13-930 ML Negative For Group A Beta Streptococcus ----- END OF REPORT * ML=Testing performed at Main Lab DEPARTMENT OF PATHOLOGY, [address] [place] [address] Eugenio Turcios M.D. Director [facility] Permit # [id number] 58 RUN DATE: 05/30/13 [facility] LAB LIVE PAGE 1 RUN TIME: [address] [place] [address] Specimen Inquiry ----- Name: SUSU MAHMOOD Florin : [address]: Nic GALLEGOS Acct: [id number] Unit: [id number] AGE: 27 Location: [facility] Re05/28/13 SEX: F Status: REG REF ----- SPEC: [id number] HERMELINDA: 05/28/13-[address]: Nic GALLEGOS REQ: [id number] RECD: 05/28/13 STATUS: COMP _ SOURCE: URINE SPDESC: ORDERED: Urine Culture QUERIES: Medent Number [id number] ----- Procedure Result Verified Site ----- Urine Culture Final 05/30/13-1105 ML Organism 1 NORMAL DORITA [place] Count 75-100,000 (Many) CFU/ML ----- END OF REPORT * ML=Testing performed at Main Lab DEPARTMENT OF PATHOLOGY, [address] [place] [address] Eugenio Turcios M.D. Director [facility] Permit # [id number] 59 Cytology Laboratory [address] [place] [address], [facility] [address] [place] [address] CYTOLOGY REPORT Name: Susu Mahmood Accession # : [id number] : 1985 (Age: 27) Sex: F Location: [facility] Med. Rec. # [id number] Date Collected: 05/28/2013 Billing #: [id number] Date Received: 05/28/2013 Physician(s): NIC SALDIVAR Source of Specimen: ENDOCERVICAL/ECTOCERVICAL THIN PREP Clinical Information: Date of Last Menstrual Period: None Provided Menstrual History: Irregular Hormonal History: IUD: Mirena Specimen Adequacy: SATISFACTORY FOR EVALUATION. ADEQUATE ENDOCERVICAL/TRANSFORMATION ZONE. General Categorization: SQUAMOUS ABNORMALITY Descriptive Evaluation: LOW GRADE SQUAMOUS INTRAEPITHELIAL LESION: MILD DYSPLASIA (GRICELDA 1), CANNOT EXCLUDE HIGH GRADE AMA. Electronic Signature Nadeem Pierre MD Reported: 06/02/2013 Also seen by: SHEEBA Trivedi (ASCP) SHEEBA Dorman (ASCP) [facility]ology [facility] HPV High Risk Date Ordered: 05/31/2013 Status: Signed Out Date Reported: 06/02/2013 High Risk POSITIVE (HPV types 16, 18, 31, 33, 35, 39, 45, 51, 52, 56, 58, 59, 66, 68) Cervista HPV HR Electronic Signature Lana Simms [place] [facility]ology [facility] HPV Low Risk Date Ordered: 05/31/2013 Status: Signed Out Date Reported: 06/03/2013 Low Risk POSITIVE (HPV types 6, 11) In situ hybridization In situ hybridization was performed at [employer], [facility] [employer] [facility], [address] [place] [address], [facility] The in situ hybridization report includes results which use analyte-specific reagents. These tests were developed and their performance characteristics determined by [employer]. They have not been cleared or approved by the U.S. Food and Drug Administration. The F.D.A. has determined that such clearance or approval is not necessary. The controls have been reviewed by the pathologist and are satisfactory Electronic Signature Nadeem Pierre MD [facility] ICD-9 Code(s) 616.0 A: 795.03 HPV HR: 795.05 HPV LR: 795.09 60 Special Testing Laboratory [address] [place] [address] [place] [address] GC / CHLAMYDIA REPORT Name: Susu Mahmood : 1985 (Age: 27) Sex: F Location: [facility] Med. Rec. # [id number] Date Collected: 05/28/2013 Billing #: [id number] Date Received: 05/28/2013 Physician(s): NIC SALDIVAR Source of Specimen: ThinPrep, APTIMA Results: Neisseria gonorrhoeae NEGATIVE Chlamydia trachomatis NEGATIVE Comment: This analysis was performed using second generation nucleic acid amplification testing (NAAT). Reported: 05/31/2013 Electronic Signature [facility] Elissa Soliman [facility] [employer] [facility] ICD-9 Codes: 616.0 61 RUN DATE: 03/18/13 [facility] LAB LIVE PAGE 1 RUN TIME: 1005 [address] [facility], [place], [place] [address] Specimen Inquiry ----- Name: SUSU MAHMOOD : [address]: Monique Prescott MD Acct: [id number] Unit: [id number] AGE: 27 Location: [facility] Re03/16/13 SEX: F Status: REG REF ----- SPEC: [id number] HERMELINDA: 03/15/13-[address]: Monique Prescott MD REQ: [id number] RECD: 03/16/13 STATUS: COMP _ SOURCE: URINE SPDESC: ORDERED: Urine Culture QUERIES: Medent Number [id number] Urine Source: Random ----- Procedure Result Verified Site ----- Urine Culture Final 03/18/13-1005 ML Organism 1 NORMAL DORITA [place] Count >100,000 (Many) CFU/ML ----- END OF REPORT * ML=Testing performed at Main Lab DEPARTMENT OF PATHOLOGY, [facility] [employer] [place], [place] [address] Eugenio Turcios M.D. Director [facility] Permit # [id number] 62 RUN DATE: 02/20/13 [facility] LAB LIVE PAGE 1 RUN TIME: [address] [place] [address] Specimen Inquiry ----- Name: SUSU MAHMOOD : [address]: Nic Kirkpatrick PA Acct: [id number] Unit: [id number] AGE: 27 Location: [facility] Re02/18/13 SEX: F Status: REG REF ----- SPEC: [id number] HERMELINDA: 02/18/[address]: Nic Kirkpatrick PA REQ: [id number] RECD: 02/18/13 STATUS: GER BLUM DR: Moniuqe Prescott MD _ SOURCE: URINE SPDESC: ORDERED: Urine Culture QUERIES: Medent Number [id number] Urine Source: Random ----- Procedure Result Verified Site ----- Urine Culture Final 02/20/13-1010 ML Organism 1 NORMAL DORITA [place] Count 50-75,000 (Many) CFU/ML ----- END OF REPORT * ML=Testing performed at Main Lab DEPARTMENT OF PATHOLOGY, [address] [place] [address] Eugenio Turcios M.D. Director [facility] Permit # [id number] 63 Cytology Laboratory [address] [facility], [facility] [address] [place] [address] CYTOLOGY REPORT Name: Susu Mahmood : 1985 (Age: 26) Sex: F Location: [facility] Date Collected: 02/06/2012 Billing #: [id number] Date Received: 02/06/2012 Physician( s): YANCY MIR RAKER BUFFING WHEEL Source of Specimen: ENDOCERVICAL/ECTOCERVICAL THIN PREP Clinical Information: Date of Last Menstrual Period: 2008 Menstrual History: Irregular Hormonal History: IUD: Mirena Specimen Adequacy: SATISFACTORY FOR EVALUATION. ADEQUATE ENDOCERVICAL/TRANSFORMATION ZONE. General Categorization: NEGATIVE FOR INTRAEPITHELIAL LESION OR MALIGNANCY. kfs Electronic Signature SHEEBA Horowitz (ASCP) Reported: 02/10/2012 [facility]ology [facility] ICD-9 Code(s) V72.31 64 It is recognized that currently available assays for the detection of antibodies to HIV-1 and/or HIV-2 may not detect all infected individuals. HIV antibodies may be undetectable in some stages of the infection and in some clinical conditions. The performance of this assay has not been established for populations of infants or children. Assayed by Chemiluminescence Microparticle Immunoassay on the Miri Advia Centaur CP. Values obtained with different methods or kits cannot be used interchangeably.The diagnostic specificity of the ADVIA Centaur 1/O/2 Enhanced assay in the low risk population was 99.90% (6052/6058) with a 95% confidence interval of 99.78 to 99.96%. 65 [facility] Laboratory [address] [facility], [address] [place] [address] GC / CHLAMYDIA REPORT Name: Susu Mahmood : 1985 (Age: 26) Sex: F Location: [facility] Soc. Sec. #: [id number] Date Collected: 02/06/2012 Billing #: [id number] Date Received: 02/06/2012 Physician(s): YANCY MIR NP Source of Specimen: ThinPrep, APTIMA Results: Neisseria gonorrhoeae NEGATIVE Chlamydia trachomatis NEGATIVE Comment: This analysis was performed using second generation nucleic acid amplification testing (NAAT). Reported: 02/07/2012 Electronic Signature [facility] Lana Simms [facility] ICD-9 Codes: 616.10 66 ------- RUN DATE: 01/03/12 [facility] NM LIVE PAGE 1 RUN TIME: 833 Specimen Inquiry RUN USER: INTERFACE ----- Name: SUSU MAHMOOD [place] Status: REG REF Re01/01/12 Age/Sex: 26/F Unit#: [id number] Location: [email or web address] : [birth year] ----- SPEC #: [id number] HERMELINDA: 01/01/12 STATUS: GER REQ #: [id number] RECD: 01/01/[address]: Yancy Mir NP SOURCE: THROAT ENTR: 01/01/12-[address]: DAQUANC: ORDERED: THROAT-BETA STR QUERIES: MEDENT REQUISITION # [id number] ACT WKST: BS 01/03/12 #1 ----- Procedure Result Verified Site ----- > THROAT-BETA STREP CULTURE Final 01/03/12-833 ML NEGATIVE FOR GROUP A BETA STREPTOCOCCUS ----- - [facility] Permit #[id number] [facility] [employer] [place] [address] ----- DEPARTMENT OF PATHOLOGY, [facility] [employer] [place], [place] [address] [facility] Permit #[id number] Eugenio Turcios M.D. Director Bill Hughes M.D. System Engineer ----- Procedures Date CPT Code Description Status Comment 10/14/2017 72401 Eye Exam Est Patient Completed Comprehensive 07/03/2017 Diabetic Foot Exam Completed in office [facility] Dr. Damon and normal 10/08/2016 42883 Eye Exam Est Patient Completed Comprehensive 10/26/2015 75155 Eye Exam New Patient Completed Comprehensive 04/21/2015 61267 Anesthesia, Delivery Completed 05/28/2013 37576 Removal Of IUD Completed Encounters Type Date Location Provider CPT E/M Dx Office Visit 11/05/2017 10:45a Family Medicine Doris Damon M.D. 17928 E11.9 E03.9 E78.2 R11.0 F17.210 Office Visit 08/05/2017 11:30a Family Lacy Damon M.D. 87737 E11.9 E03.9 E78.2 F17.210 Office Visit 07/03/2017 1:45p Family Medicine Doris Damon M.D. 00995 Z00.00 F17.210 E11.9 E03.9 E78.2 Z23 Office Visit 05/16/2017 2:15p Family Medicine Sloane Amaro [facility] 10183 J02.0 J01.90 Office Visit 09/18/2016 3:45p Family Medicine Doris Damon M.D. 75741 E11.9 E03.9 E78.2 J06.9 Office Visit 06/11/2016 3:30p Family Lacy Damon M.D. 21687 M25.521 M54.2 E78.5 E03.9 Office Visit 06/04/2016 10:00a Family Lacy Damon M.D. 14114 M25.521 Office Visit 01/18/2016 3:30p [facility] Doris Damon M.D. 54724 M54.2 J01.90 R05 F17.210 Z71.6 Office Visit 12/07/2015 3:45p [facility] Doris Damon M.D. 04806 F33.0 E78.5 E03.9 E11.9 J30.9 Office Visit 09/08/2015 9:00a [facility] Doris Damon M.D. 03065 E03.9 F32.8 E78.5 E11.9 Z23 Office Visit 02/27/2011 9:10a [place] [address] 924.20 782.0 Office Visit 02/06/2011 9:40a [place] [address] 924.20 782.0 Office Visit 01/23/2011 11:00a [place] [address] 924.20 Plan of Care Future Appointment(s):02/03/2018 3:00 pm - Doris Damon M.D. at Family Fwxekvbl10/14/2019 3:15 pm - Flaco Perdomo MD at Wsnsevqlqpsam40/21/2018 - EL WrightJ01.00 Acute maxillary sinusitis, unspecifiedNew Medication: Cefdinir 300 mgComments:Complete medications as prescribed.Provide plenty of clear fluids. Alternate Tylenol and Motrin as needed. Call office as needed if symptoms worsen or persist longer than expected. Continue FLonase. YOu might want to also suse some Mucinex.Follow up:As needed.
[2017-12-23] MEDS ORDERED: Albuterol 2.5 MG/3 ML NEB.SOL* (0.083%) INH ONE (16:24)
[2017-12-23] MEDS ORDERED: Ipratropium 0.5MG/2.5ML NEB* 0.5 MG/2.5 ML NEB.SOLN INH ONE (16:24)
--- NOTE | 2017-12-23 16:40 | UC ---
Shortness of Breath HPI - HPI Summary HPI Summary: 32 yo female has felt chest tightness and dyspnea since this AM has had right shoulder pain >1 week no leg pain or swelling mild URI symptoms hx of asthma has not used her inhaler - History of Current Complaint Chief Complaint: UCRespiratory Stated Complaint: SHORTNESS OF BREATH/SHLD PAIN/CHEST TIGHTNESS Time Seen by Provider: 12/23/17 15:58 Hx Obtained From: Patient Hx Last Menstrual Period: 04/27/17 Onset/Duration: Sudden Onset - present since awakening this AM Timing: Constant Current Severity: Mild Dyspnea At: Rest Aggrevating Factors: Nothing Alleviating Factors: Nothing Associated Signs & Symptoms: Positive: Wheezing - "maybe a little wheezy", Nasal Congestion. Negative: Cough (Productive), Cough (Nonproductive), Cough ( Bloody Sputum) - Allergy/Home Medications Allergies/Adverse Reactions: Allergies Allergy/AdvReac Type Severity Reaction Status Date / Time MS Fish Oil [Fish Oil] AdvReac Intermediate Diarrhea Verified 12/23/17 15:55 Home Medications: Home Medications metFORMIN* [Glucophage 500 MG TAB *] 500 mg PO BID 12/23/17 [History Confirmed 12/23/17] PMH/Surg Hx/FS Hx/Imm Hx Endocrine History: Diabetes Cardiovascular History: Hypertension Respiratory History: Asthma - Surgical History Surgical History: Yes Surgery Procedure, Year, and Place: Tubal and C section 04/19 - Family History Known Family History: Positive: Cardiac Disease, Hypertension, Respiratory Disease - BOTH PARENTS TOBACCO ABUSE, Other - no FMH osteoporosis - Social History Alcohol Use: Rare Substance Use Type: None Smoking Status (MU): Current Every Day Smoker Type: Cigarettes Amount Used/How Often: 1/2 PPD Length of Time of Smoking/Using Tobacco: started ~ age 12 Have You Smoked in the Last Year: Yes Household Exposure Type: Cigarettes - Immunization History Most Recent Influenza Vaccination: Fall 2014 Review of Systems Constitutional: Negative Skin: Negative Eyes: Negative ENT: Negative Respiratory: Shortness Of Breath Cardiovascular: Negative Gastrointestinal: Negative Genitourinary: Negative Motor: Negative Neurovascular: Negative Musculoskeletal: Negative Neurological: Negative Psychological: Negative Is Patient Immunocompromised?: No All Other Systems Reviewed And Are Negative: Yes Physical Exam Triage Information Reviewed: Yes Appearance: Well-Appearing, No Pain Distress, Well-Nourished Vital Signs: Initial Vital Signs Temp 97.8 F 12/23/17 15:51 Pulse 105 12/23/17 15:51 Resp 16 12/23/17 15:51 BP 127/74 12/23/17 15:51 Pulse Ox 100 12/23/17 15:51 Vital Signs Reviewed: Yes Eyes: Positive: Conjunctiva Clear ENT: Positive: Nasal congestion, TMs normal, Uvula midline. Negative: Hearing grossly normal, Nasal drainage, Tonsillar swelling, Tonsillar exudate, Trismus, Muffled voice, Hoarse voice, Sinus tenderness Dental Exam: Normal Neck: Positive: Supple, Nontender, No Lymphadenopathy Respiratory: Positive: Lungs clear, No respiratory distress, No accessory muscle use. Negative: Chest non-tender, Respiratory distress, Decreased breath sounds, Accessory muscle use Cardiovascular: Positive: RRR, No Murmur, Tachycardia Musculoskeletal: Positive: ROM Intact, No Edema Neurological: Positive: Alert Psychological Exam: Normal Skin Exam: Normal Diagnostics - Radiology No standard instances Xray Interpretation: No Acute Changes Radiology Interpretation Completed By: Radiologist - EKG Cardiac Rate: NL - 99 Cardiac Rhythm: Sinus: Normal Ectopy: None ST Segment: Normal - prolonged QT Re-Evaluation - Re-Evaluation First Eval Re-Evaluation Time: 17:09 Change: Unchanged - no change after neb Shortness of Breath Dx - Course Course Of Treatment: D/W Elena Stewart NP. to [facility] via POV. [facility] declined EMS transfer - Differential Dx/Diagnosis Provider Diagnoses: chest pressure/dyspnea of uncertain cause Discharge - Sign-Out/Discharge Documenting (check all that apply): Discharge - Discharge Plan Condition: Stable Disposition: TRANS HIGHER [facility] CARE FAC Referrals: Kalie Sheriff MD [Primary Care Provider] - If Needed Additional Instructions: as discussed you have a number of cardiac risk factors I think the most prudent thing to do is to go to the ER for evaluation of you symptoms I spoke with Elena Stewart NP and they are expecting you - Billing Disposition and Condition Condition: STABLE Disposition: EMTALA Images Front/Back of Body, Lg ([place]): 1 - tender
[2017-12-23] MEDS ORDERED: predniSONE TAB* 20 MG PO ONE (16:45)
[2017-12-23] MEDS ORDERED: Albuterol HFA INHALER* 8 gm MDI INH ONE (16:45)
--- NOTE | 2017-12-23 16:46 | RAD ---
HISTORY: Dyspnea COMPARISONS: January 19, 2016 VIEWS: 4: Frontal dual-energy and lateral views of the chest. FINDINGS: CARDIOMEDIASTINAL SILHOUETTE: The cardiomediastinal silhouette is normal. JIMMY: The jimmy are normal. PLEURA: The costophrenic angles are sharp. No pleural abnormalities are noted. LUNG PARENCHYMA: The lungs are clear. ABDOMEN: The upper abdomen is clear. There is no subphrenic gas. BONES AND SOFT TISSUES: No bone or soft tissue abnormalities are noted. OTHER: None. IMPRESSION: NO ACTIVE CARDIOPULMONARY DISEASE.
[2017-12-23] MEDS ORDERED: Aspirin Low Dose CHEW TAB* 81 MG PO ONE (17:06)
== END 2017-12-23 17:18 | disposition short-term general hospital (02) ==
LOC: UCCORT 15:49
DX: R07.89 Other chest pain (principal); R06.00 Dyspnea, unspecified; E11.9 Type 2 diabetes mellitus without complications; Z79.84 Long term (current) use of oral hypoglycemic drugs; I10 Essential (primary) hypertension; J45.909 Unspecified asthma, uncomplicated; F17.210 Nicotine dependence, cigarettes, uncomplicated
CPT/HCPCS: 71046; 93005; 99212; A9270-GY; G0463

== ENCOUNTER 2018-07-11 12:40 | Emergency (ER) | payer OTHER ==
[2018-07-11 13:12] VITALS: BP 110/67
--- NOTE | 2018-07-11 14:23 | RAD ---
Indication: Sinus pressure. Illness for 2 weeks. Comparison: No relevant prior exams available on the [facility] for comparison. Technique: AP, [place], lateral, SMV Report: Normally aerated paranasal sinuses. Grossly midline nasal septum. Grossly clear mastoid air spaces. No osseous lesions evident. IMPRESSION: #. No radiographic evidence for sinusitis.
--- NOTE | 2018-07-11 14:33 | ED ---
Throat Pain/Nasal Congestion - HPI Summary HPI Summary: sinus pressure, with pain in the throat, ears, and headache for the last several days - History of Current Complaint Chief Complaint: UCGeneralIllness Time Seen by Provider: 07/11/18 13:26 Hx Obtained From: Patient Onset/Duration: Gradual Onset, Lasting Weeks Severity: Moderate Cough: Nonproductive - Epiglottits Risk Factors Epiglottis Risk Factors: Negative - Allergies/Home Medications Allergies/Adverse Reactions: Allergies Allergy/AdvReac Type Severity Reaction Status Date / Time fish oil AdvReac Intermediate Diarrhea Verified 07/11/18 13:05 PMH/Surg Hx/FS Hx/Imm Hx Previously Healthy: Yes Endocrine/Hematology History: Reports: Hx Diabetes, Hx Thyroid Disease Respiratory History: Reports: Hx Asthma - Surgical History Surgery Procedure, Year, and Place: Tubal and C section 04/19 Infectious Disease History: No Infectious Disease History: Denies: Hx Clostridium Difficile, Hx Hepatitis, Hx Human Immunodeficiency Virus (HIV), Hx of Known/Suspected MRSA, Hx Shingles, Hx Tuberculosis, Hx Known/ Suspected VRE, Hx Known/Suspected VRSA, History Other Infectious Disease, Traveled Outside the in Last 30 Days - Family History Known Family History: Positive: Unknown, Cardiac Disease, Hypertension, Respiratory Disease - BOTH PARENTS TOBACCO ABUSE, Other - no FMH osteoporosis - Social History Alcohol Use: None Substance Use Type: Reports: None Smoking Status (MU): Current Every Day Smoker Type: Cigarettes Amount Used/How Often: 1/2 PPD Length of Time of Smoking/Using Tobacco: started ~ age 12 Have You Smoked in the Last Year: Yes Review of Systems Constitutional: Negative Eyes: Negative ENT: Other - sinus tenderness, congestion Cardiovascular: Negative Respiratory: Negative Gastrointestinal: Negative Genitourinary: Negative Musculoskeletal: Negative Skin: Negative Neurological: Negative Psychological: Normal All Other Systems Reviewed And Are Negative: Yes Physical Exam Triage Information Reviewed: Yes Vital Signs On Initial Exam: Initial Vitals Temp Pulse Resp BP Pulse Ox 36.5 C 84 16 110/67 100 07/11/18 13:04 07/11/18 13:04 07/11/18 13:04 07/11/18 13:04 07/11/18 13:04 Vital Signs Reviewed: Yes Appearance: Positive: Well-Appearing Skin: Positive: Warm, Dry Head/Face: Positive: Normal Head/Face Inspection Eyes: Positive: Normal ENT: Positive: Normal ENT inspection Respiratory/Lung Sounds: Positive: Clear to Auscultation Cardiovascular: Positive: Normal Abdomen Description: Positive: Nontender Bowel Sounds: Positive: Present Diagnostics - Vital Signs Vital Signs Temp Pulse Resp BP Pulse Ox 07/11/18 13:04 36.5 C 84 16 110/67 100 - Laboratory Lab Results: Lab Results 07/11/18 07/11/18 Range/Units 13:11 13:41 POC Glucose (mg/dL) 84 (70-100) mg/dL Group A Strep Rapid Negative (Negative) Lab Statement: Any lab studies that have been ordered have been reviewed, and results considered in the medical decision making process. EENT Course/Dx - Diagnoses Provider Diagnoses: URI, acute Is Visit Related: No Discharge - Sign-Out/Discharge Documenting (check all that apply): Patient Departure All imaging exams completed and their final reports reviewed: Yes - Discharge Plan Condition: Good Disposition: HOME Patient Education Materials: Acute Bronchitis (ED) Referrals: Kalie Sheriff MD [Primary Care Provider] - - Billing Disposition and Condition Condition: GOOD Disposition: Home
== END 2018-07-11 14:45 | disposition home or self-care (01) ==
LOC: UCCORT 12:40
DX: J06.9 Acute upper respiratory infection, unspecified (principal); F17.210 Nicotine dependence, cigarettes, uncomplicated
CPT/HCPCS: 70220; 87651; 99211; G0463

== ENCOUNTER 2019-05-17 19:57 | Emergency (ER) | payer OTHER ==
[2019-05-17 20:14] VITALS: BP 114/45
--- NOTE | 2019-05-17 20:20 | UC ---
Lower Extremity/Ankle HPI - HPI Summary HPI Summary: Per home and family living professor: "RIGHT ANKLE INJURY. THIS ZENAIDA ABOOUT 1830 PT STEPPED WRONG OFF THE SIDEWALK AND ROLLED HER ANKLE. PT SCRAPPED THE OURTER ASPECT OF HER LOWER LEG ON THE CONCRETE. " -here w/ her . foot was pointed medially while ankle everted. no numbing/ tingling. pain is significant. unable to bare weight. - History of Current Complaint Chief Complaint: UCLowerExtremity Stated Complaint: RT ANKLE INJURY Time Seen by Provider: 05/17/19 20:09 Hx Last Menstrual Period: 05/06/19 Pain Intensity: 7 - Allergies/Home Medications Allergies/Adverse Reactions: Allergies Allergy/AdvReac Type Severity Reaction Status Date / Time fish oil AdvReac Intermediate Diarrhea Verified 05/17/19 20:04 Home Medications: Home Medications Atorvastatin* [Lipitor 20 MG*] 20 mg PO QPM 05/17/19 [History Confirmed 05/17/19 ] Loratadine [Claritin 10 MG CAP] 10 mg PO DAILY 05/17/19 [History Confirmed 05/17] PMH/Surg Hx/FS Hx/Imm Hx Previously Healthy: Yes Endocrine History: Diabetes, Dyslipidemia - Surgical History Surgical History: Yes Surgery Procedure, Year, and Place: Tubal and C section 04/19. APPENDECTOMY - Family History Known Family History: Positive: Unknown, Cardiac Disease, Hypertension, Respiratory Disease - BOTH PARENTS TOBACCO ABUSE, Other - no FMH osteoporosis - Social History Alcohol Use: None Substance Use Type: None Smoking Status (MU): Current Every Day Smoker Type: Cigarettes Amount Used/How Often: 15 CIGS A DAY Length of Time of Smoking/Using Tobacco: started ~ age 12 Have You Smoked in the Last Year: Yes Household Exposure Type: Cigarettes - Immunization History Most Recent Influenza Vaccination: Fall 2014 Review of Systems All Other Systems Reviewed And Are Negative: Yes Constitutional: Positive: Negative Skin: Positive: Negative Eyes: Positive: Negative Respiratory: Positive: Negative Cardiovascular: Positive: Negative Gastrointestinal: Positive: Negative Genitourinary: Positive: Negative Motor: Positive: Decreased ROM, Weakness Neurovascular: Positive: Negative. Negative: Decreased Sensation, Decreased Pulses Musculoskeletal: Positive: Arthralgia, Decreased ROM. Negative: Edema Neurological: Positive: Negative. Negative: Numbness Psychological: Positive: Negative Is Patient Immunocompromised?: No Physical Exam Triage Information Reviewed: Yes Appearance: Pain Distress - in wheelchair w/ leg elevated Vital Signs: Initial Vital Signs Temp 97.9 F 05/17/19 20:08 Pulse 93 05/17/19 20:08 Resp 20 05/17/19 20:08 BP 114/45 05/17/19 20:08 Pulse Ox 100 05/17/19 20:08 Vital Signs Reviewed: Yes Respiratory Exam: Normal Cardiovascular Exam: Normal Musculoskeletal: Positive: ROM Limited @ - right ankle. mortise intact. mild swelling rightlateral ankle. CR brisk. sensation intact ankle/foot/toes. able to move her toes. + 2 DP/PT b/l. Neurological Exam: Normal Neurological: Positive: Muscle Tone Normal Psychological Exam: Normal Skin Exam: Normal Lower Extremity Course/Dx - Course Course Of Treatment: rt ankle xray & Rt foor xray - I do not appreciate any fractures. Pt and aware that I am not a RAD and official report will be in in the morning. they should get a call if there is a discrepany -wrap, cAM boot and crutches. 10 % wt bearing. -denies CKD, PUD, HTN - Differential Dx/Diagnosis Differential Diagnosis/HQI/PQRI: Fracture (Closed), Sprain, Strain Provider Diagnosis: Right ankle sprain Discharge - Sign-Out/Discharge Documenting (check all that apply): Patient Departure All imaging exams completed and their final reports reviewed: No - Discharge Plan Condition: Stable Disposition: HOME Prescriptions: Ibuprofen TAB* [Motrin TAB* 600 MG] 600 mg PO Q8H PRN 10 Days #30 tab PRN Reason: Pain - Moderate Patient Education Materials: Ankle Sprain (ED) Referrals: Kira Miner MD [Primary Care Provider] - Chad Ortega MD [Medical Doctor] - 2 Days Additional Instructions: -I do not appreciate any fractures on your xray, however, the official report will come from the radiologist tomorrow. Ice frequently 20 mins on/off w/ a towel barrier. Ibuprofen for 1 week for pain and inflammation 600-800mgs every 8 hrs as needed. Out of work note given for 05/18 and 05/19 and release should come from your follow up visit. There is a small heel spur on your xray as well. This may cause plantar fascitis in the future. - Billing Disposition and Condition Condition: STABLE Disposition: Home
[2019-05-17] MEDS ORDERED: Ibuprofen TAB* 600 MG PO ONE (20:37)
--- NOTE | 2019-05-18 10:25 | UC ---
- Progress Note Progress Note: xray report right ankle / right foot: The soft tissues are unremarkable. The bone mineralization is within normal limits. No fracture is identified. There is an Achilles calcaneal enthesophyte. Anatomic alignment is maintained. The joint spaces are preserved. Course/Dx - Diagnoses Provider Diagnoses: Right ankle sprain Discharge - Sign-Out/Discharge Documenting (check all that apply): Patient Departure All imaging exams completed and their final reports reviewed: Yes - Discharge Plan Condition: Stable Disposition: HOME Prescriptions: Ibuprofen TAB* [Motrin TAB* 600 MG] 600 mg PO Q8H PRN 10 Days #30 tab PRN Reason: Pain - Moderate Patient Education Materials: Ankle Sprain (ED) Forms: *Work Release Referrals: Chad Ortega MD [Medical Doctor] - 2 Days Kira Miner MD [Primary Care Provider] - Additional Instructions: -I do not appreciate any fractures on your xray, however, the official report will come from the radiologist tomorrow. Ice frequently 20 mins on/off w/ a towel barrier. Ibuprofen for 1 week for pain and inflammation 600-800mgs every 8 hrs as needed. Out of work note given for 05/18 and 05/19 and release should come from your follow up visit. There is a small heel spur on your xray as well. This may cause plantar fascitis in the future. - Billing Disposition and Condition Condition: STABLE Disposition: Home
== END 2019-05-17 21:47 | disposition home or self-care (01) ==
LOC: UCCORT 19:57
DX: S93.402A Sprain of unspecified ligament of left ankle, initial encounter (principal); X50.0XXA Overexertion from strenuous movement or load, initial encounter; Y93.01 Activity, walking, marching and hiking; Y92.480 Sidewalk as the place of occurrence of the external cause; E11.9 Type 2 diabetes mellitus without complications; E78.5 Hyperlipidemia, unspecified; F17.210 Nicotine dependence, cigarettes, uncomplicated
CPT/HCPCS: 99213; A9270-GY; G0463